=== PATIENT | male | born 1960 | race Caucasian/White ===

== ENCOUNTER 2018-06-25 10:28 | Inpatient (IN) | payer MEDICARE, OTHER ==
[~2018-06-25] VITALS: Ht 175.3 cm; Wt 82.1 kg
[2018-06-25] MEDS ORDERED: NS IV 1000 ML 1,000 ML IV SCH (11:31)
[2018-06-25] MEDS ORDERED: ALPRAZolam 0.25 MG (XANAX) TAB PO PRN (11:45)
[2018-06-25] MEDS ORDERED: ONDANSETRON 4 MG/2 ML (SDV) Z0FRAN IVP PRN (11:45)
[2018-06-25] MEDS ORDERED: DOCUSATE SODIUM 100 MG (COLACE) CAP PO PRN (11:45)
[2018-06-25] MEDS ORDERED: ACETAMINOPHEN 500 MG TAB (TYLENOL) PO PRN (11:45)
[2018-06-25] MEDS ORDERED: HYDROcodone/APAP 5 MG/325 MG (LORTAB) TAB PO PRN (11:45)
[2018-06-25] MEDS ORDERED: CALCIUM CARBONATE 500 MG (TUMS) TAB.CHEW PO PRN (11:45)
[2018-06-25] MEDS ORDERED: fentaNYL INJECTION 100 MCG/2 ML AMP IVP PRN (11:45)
[2018-06-25] MEDS ORDERED: NITR0.4T42 SL (14:50)
[2018-06-25] MEDS ORDERED: ATOR80TA76 PO (14:50)
[2018-06-25] MEDS ORDERED: LISI2.5T PO (14:50)
[2018-06-25] MEDS ORDERED: CARV25TA PO (14:50)
[2018-06-25] MEDS ORDERED: HYDR-3820 PO (14:50)
[2018-06-25] MEDS ORDERED: FURO80TA3 PO (14:50)
[2018-06-25] MEDS ORDERED: MEROPENEM 500 MG in NS (IVPB) 100 ML IV SCH (15:00)
[2018-06-25] MEDS ORDERED: ENOXAPARIN 40 MG/0.4 ML (LOVENOX) SYR SC SCH (15:00)
[2018-06-25 15:01] VITALS: BP 137/68
[2018-06-25] MEDS ORDERED: LISI10TA2 PO (15:07)
[2018-06-25] MEDS ORDERED: INSU100I29 SQ (15:07)
[2018-06-25 15:45] VITALS: BP 159/74
[2018-06-25] MEDS ORDERED: VANCOMYCIN 2000 MG/NS 500 ML IVPB IV NR ×2 (15:45)
--- NOTE | 2018-06-25 15:47 | History & Physical-Hospitalist ---
LILLYAILYN KENNEYDAVID MED STUDENT 06/25/18 1547: History of Present Illness HPI/Chief Complaint CC: Left foot wound, painful, swollen HPI: Patient is a 57 yo male with history of insulin dependent type 2 diabetes (most recent A1c 9 per PCP) and bilateral forefoot amputation. Patient reports that he was "fine, able to walk and everything" until approximately 1 month ago, a wound developed on the left lateral ankle. He has since been bedridden, unable to ambulate even to the bathroom. This wound is painful but the patient also has neuropathy for which he takes norco regularly and the wound pain was hard to distinguish from this baseline pain. Patient admits to many associated symptoms, see ROS. He has been under the care of a assembly machine feeder in [place] for this wound but recently it has worsened. He was directly admitted to [facility] from the PCP Dr. Blossom Camilo in [place], [place] where it was discovered that leg swelling had increased to the level of the knee. Source: patient Exam Limitations: no limitations Date Seen 06/25/18 Time Seen by a Provider: 15:00 Attending Physician Elisha Mccormick DO PCP No,Local Physician Referring Physician Date of Admission Jun 25, 2018 at 14:08 Home Medications & Allergies Home Medications Reviewed patient Home Medication Reconciliation performed by pharmacy medication reconciliations headend technician and/or nursing. Patients Allergies have been reviewed. Allergies Allergies Coded Allergies Penicillins (Verified Allergy, Unknown, 06/25/18) Sulfa (Sulfonamide Antibiotics) (Verified Allergy, Unknown, 06/25/18) Past Moqwphl-Eriiji-Qkahkn Hx Past Med/Social Hx: Reviewed and Corrections made Patient Social History Employed/Student: retired Alcohol Use: Denies Use Recreational Drug Use: No Smoking Status: Current Everyday Smoker (currently 1/4 ppd "used to be more") Type Used: Cigarettes 2nd Hand Smoke Exposure: Yes Recent Foreign Travel: No Contact w/other who traveled: No Social History current everyday smoker, never drank, no recreational drugs, 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 " Past Medical History Surgeries: Amputation (bilateral forefoot), Coronary Stent (x2) stent in his leg as well Cardiac: Coronary Artery Disease (2 stents required), Hypertension Neurological: Neuropathy (due to diabetes) Musculoskeletal: Amputee (bilateral forefoot) chronic pain Endocrine: Diabetes, Insulin dep type II diabetes mellitus with peripheral angiopathy and gangrene, insulin required essential HTN chronic pain iron deficiency anemia Family History Reviewed Nursing Family Hx Cancer (dad pancreatic, sister unknown), Diabetes Review of Systems Constitutional: chills; No diaphoresis; dizziness, malaise, weakness, weight loss (unsure how much, due to loss of appetite) EENTM: no symptoms reported; No hearing loss, No ear pain, No blurred vision, No vision loss Respiratory: no symptoms reported; No cough, No dyspnea on exertion, No short of breath Cardiovascular: No chest pain; edema, Hx of Intervention (coronary stents x2) Gastrointestinal: diarrhea (since yesterday), loss of appetite, nausea Genitourinary: no symptoms reported Musculoskeletal: other (lower extremity pain, neuropathy) Skin: dryness (lower extremity dry, flaking skin) Psychiatric/Neurological: No Symptoms Reported Physical Exam Physical Exam Vital Signs Vital Signs - First Documented 06/25/18 15:01 Temp 99.9 Pulse 109 Resp 22 B/P (MAP) 137/68 (91) Pulse Ox 99 O2 Delivery Room Air Capillary Refill : Height, Weight, BMI Height: '" Weight: 181lbs. oz. 82.836300ty; BMI Method: General Appearance: No Apparent Distress, Chronically ill, Obese Eyes: Bilateral Eye Normal Inspection HEENT: Normal ENT Inspection Neck: Full Range of Motion, Normal Inspection, Non Tender, Supple Respiratory: Chest Non Tender, Lungs Clear, Normal Breath Sounds, No Accessory Muscle Use, No Respiratory Distress Cardiovascular: Regular Rate, Rhythm, No Gallop, No JVD, No Murmur Gastrointestinal: Normal Bowel Sounds, No Pulsatile Mass, Non Tender (to deep palpation), Soft Extremity: No Calf Tenderness, Inflammation, Pedal Edema, Swelling (left leg greater than right) Neurologic/Psychiatric: Alert, Oriented x3, Normal Mood/Affect Skin: Warm/Dry, Pallor Results Results/Procedures Labs Patient resulted labs reviewed. Assessment/Plan Admission Diagnosis Left foot infection Admission Status: Inpatient Order (span 2 midnights) Reason for Inpatient Admission: wound possibly requiring amputation Assessment and Plan 57 yo male with uncontrolled diabetes presented with infected foot wound, left lateral ankle. Assessment: type II diabetic, insulin dependent L lateral ankle wound, failed outpatient management Plan: begin IV vancomycin and zosyn consult Dr. Sepulveda obtain MRI Diagnosis/Problems Diagnosis/Problems (1) Wound of left foot Status: Acute Assessment & Plan: consider amputation (2) Cellulitis of left foot Status: Acute (3) Diabetes mellitus type 2, insulin dependent Status: Chronic (4) Hypertension Status: Chronic Qualifiers: Hypertension type: essential hypertension Qualified Codes: I10 - Essential (primary) hypertension (5) Neuropathy Status: Chronic (6) Amputee Status: Chronic Permanent Comment: bilateral forefoot amputee Last Edited By: Maya Parham on Jun 25, 2018 16:31 (7) Chronic pain Status: Chronic ELISHA MCCORMICK DO 06/26/18 1029: History of Present Illness HPI/Chief Complaint This is a 57yoAAM patient of Dr Camilo in [place], [place] who called me upon Dr Derick palacios when he was contracted for need of foot infection management. He had been placed on Levaquin, Doxycycline, and Rocephin by PCP and patient was not responding and wanted a second opinion. I accepted the patient and when he was admitted ho refused to have lab draws and xrays and IV and RN explained that he would need to accept medical treatment in order for us to help him. He eventually agreed for lab draw revealing hgb 6.7 but normal renal function. IV was not adequate for transfusion and no indication for urgent transfusion and repeat today was 7.2 and he has a h/o transfusions in the past. Dr Spain saw patient in consultation and derived h/o stents in 2017. MRI was obtained and added left knee MRI which revealed not only osteomyelitis of the left foot but left knee septic arthritis and considering I did not have Ortho coverage this weekend and I do not have ID it was assessed with all of his co-morbidities he would need higher level of care. He has been at [facility] before but wanted transfer to [facility] in [place] because his family lives in [place] and his primary care provider is in [place], [place]. Source: patient, RN/MD Exam Limitations: other (poor historian) Date Seen 06/25/18 Time Seen by a Provider: 08:30 Home Medications & Allergies Home Medications Reviewed Past Fsqdoht-Hxckoc-Lkoryb Hx Past Med/Social Hx: Reviewed Nursing Past Med/Soc Hx, Reviewed and Corrections made Patient Social History Marrital Status: single Alcohol Use: Denies Use Recreational Drug Use: No Smoking Status: Current Everyday Smoker (currently 1/4 ppd "used to be more") Past Medical History Surgeries: Amputation (bilateral forefoot), Coronary Stent (x2 2017) Cardiac: Coronary Artery Disease (2 stents required), Hypertension Neurological: Neuropathy (due to diabetes) Musculoskeletal: Amputee (bilateral forefoot) Endocrine: Diabetes, Insulin dep Family History Diabetes Review of Systems Constitutional: see HPI, malaise, weakness EENTM: no symptoms reported Respiratory: no symptoms reported Cardiovascular: no symptoms reported Gastrointestinal: no symptoms reported Genitourinary: no symptoms reported Musculoskeletal: joint pain, muscle stiffness Skin: see HPI, change in color Psychiatric/Neurological: No Symptoms Reported All Other Systems Reviewed Negative Unless Noted: Yes Physical Exam Physical Exam General Appearance: No Apparent Distress, WD/WN, Chronically ill Eyes: Bilateral Eye Normal Inspection, Bilateral Eye PERRL HEENT: PERRL/EOMI, Normal ENT Inspection, Pharynx Normal Neck: Full Range of Motion, Normal Inspection, Non Tender, Supple, Carotid Bruit Respiratory: Chest Non Tender, Lungs Clear, Normal Breath Sounds, No Accessory Muscle Use, No Respiratory Distress Cardiovascular: Regular Rate, Rhythm, No Edema, No Gallop, No JVD, No Murmur, Normal Peripheral Pulses Gastrointestinal: Normal Bowel Sounds, No Organomegaly, No Pulsatile Mass, Non Tender, Soft Back: Normal Inspection, No CVA Tenderness, No Vertebral Tenderness Extremity: Normal Capillary Refill, Normal Inspection, Normal Range of Motion, Non Tender, No Calf Tenderness, Inflammation, Pedal Edema, Swelling (left leg greater than right), Other (left knee effusion noted) Neurologic/Psychiatric: Alert, Oriented x3, No Motor/Sensory Deficits, Normal Mood/Affect Skin: Normal Color, Warm/Dry Lymphatic: No Adenopathy Assessment/Plan Admission Diagnosis Left foot cellulitis Left acute knee septic arthritis DM PVD CAD DM OOC Severe anemia Leukocytosis Plan: Transfer to [place] Admission Status: Inpatient Order (span 2 midnights) Reason for Inpatient Admission: Septic knee needs I&D and IV abx Diagnosis/Problems Diagnosis/Problems (1) Septic arthritis of knee, left Status: Acute Qualifiers: Septic arthritis organism: due to unspecified organism Qualified Codes: M00.9 - Pyogenic arthritis, unspecified (2) Osteomyelitis of ankle or foot, left, acute Status: Acute (3) Amputee Status: Chronic Permanent Comment: bilateral forefoot amputee Last Edited By: Maya Parham on Jun 25, 2018 16:31 (4) Neuropathy Status: Chronic (5) Hypertension Status: Chronic Qualifiers: Hypertension type: essential hypertension Qualified Codes: I10 - Essential (primary) hypertension (6) Chronic pain Status: Chronic (7) Diabetes mellitus type 2, insulin dependent Status: Chronic (8) Cellulitis of left foot Status: Acute (9) Wound of left foot Status: Acute (10) Leukocytosis Status: Acute Qualifiers: Leukocytosis type: leukemoid reaction Qualified Codes: D72.823 - Leukemoid reaction (11) Anemia Status: Acute Qualifiers: Anemia type: unspecified type Qualified Codes: D64.9 - Anemia, unspecified (12) PVD (peripheral vascular disease) Status: Chronic (13) CAD (coronary artery disease) Status: Chronic Qualifiers: Coronary Disease-Associated Artery/Lesion type: [place] artery [place] vs. transplanted heart: [place] heart Associated angina: without angina Qualified Codes: I25.10 - Atherosclerotic heart disease of [place] coronary artery without angina pectoris (14) Smoker Status: Chronic MAYA PARHAM STUDENT Jun 25, 2018 15:47 ELISHA MCCORMICK DO Jun 26, 2018 10:29
[2018-06-25] MEDS ORDERED: ASPI-983 PO (15:50)
[2018-06-25] MEDS ORDERED: NITROGLYCERIN 0.4 MG SL TABS BTL 25'S SL PRN (16:00)
[2018-06-25] MEDS ORDERED: HYDROcodone/APAP 10 MG/325 MG (LORTAB) TAB PO PRN (16:15)
--- NOTE | 2018-06-25 16:24 | Consultation-Cardiology ---
HPI-Cardiology Cardiology Consultation: Date of Consultation 06/25/18 Time Seen by a Provider: 16:15 Date of Admission 06-25-18 Attending Physician Elisha Mccormick DO Admitting Physician Zainab,Local Physician Consulting Physician Jackie Spain MD HPI: Chief Complaint: Non-healing wound Mr. Miller is a 57 year old male direct admitted to [facility] from a PCP clinic in [place] d/t non-healing ulcer of the left foot. His family is at the bedside. He and his family report he has had a partial foot amputation of his left foot approx 15 years ago. He has been following with podiatry services in [place], [place]. He developed an ulcer on his left foot which was healed almost to "pin point" size. 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 He has had quite a bit of pain and swelling of the extremity up to his knee. He reports fever, chills, n/v/d which has been present for days. No c/o CP, palpitations, syncope, near syncope or dyspnea. He is a tobacco smoke of aprox 3/4 PPD. He does have DM 2 and is on insulin and Metformin. He reports last year he had cardiac stents placed in [place], [place]. 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 He states he does take ASA every day. He report difficulty with mobility d/t the pain in his left leg. Review of Systems-Cardiology Review of Systems Constitutional: chills, fever Eyes: No vision change Ears/Nose/Throat: No recent hearing loss Respiratory: As described under HPI Cardiovascular: As described under HPI Gastrointestinal: As described under HPI Genitourinary: No dysuria Musculoskeletal: As describe under HPI Skin: As described under HPI Psychiatric/Neurological: No seizure, No focal weakness, No syncope Hematologic: No bleeding abnormalities DDP-Vaksbq-Wucmtd Hx Patient Social History Employed/Student: retired Alcohol Use: Denies Use Recreational Drug Use: No Smoking Status: Current Everyday Smoker (currently 1/4 ppd "used to be more") Type Used: Cigarettes 2nd Hand Smoke Exposure: Yes Recent Foreign Travel: No Recent Infectious Disease Expo: No Past Medical History PMH As described under Assessment. Allergies and Home Medications Allergies Coded Allergies: Penicillins (Verified Allergy, Unknown, 06/25/18) Sulfa (Sulfonamide Antibiotics) (Verified Allergy, Unknown, 06/25/18) Home Medications Aspirin 81 Mg Tablet.dr, 81 MG PO DAILY, (Reported) Atorvastatin Calcium 80 Mg Tablet, 80 MG PO HS, (Reported) Carvedilol 25 Mg Tablet, 25 MG PO DAILY, (Reported) Furosemide 80 Mg Tablet, 80 MG PO DAILY, (Reported) Hydrocodone/Acetaminophen 1 Each Tablet, 1 TAB PO Q6H PRN for PAIN-MODERATE, ( Reported) Insulin Detemir 100 Unit/1 Ml Insuln.pen, 55 UNIT SQ BID, (Reported) LAST FILLED 10-02-17 Lisinopril 10 Mg Tablet, 10 MG PO BID, (Reported) LAST FILLED #60 04-14-18 Nitroglycerin 0.4 Mg Tab.subl, 0.4 MG SL UD PRN for CHEST PAIN, (Reported) Patient Home Medication List Home Medication List Reviewed: Yes Physical Exam-Cardiology Physical Exam Vital Signs/I&O 06/26/18 06/26/18 06/26/18 06/26/18 00:20 01:00 04:48 06:32 Temp 99.3 99.0 Pulse 104 102 97 Resp 19 18 B/P (MAP) 130/60 (83) 128/63 (84) Pulse Ox 98 96 96 O2 Delivery Room Air Room Air Room Air 06/26/18 07:00 Pulse 105 06/26/18 00:00 Intake Total 820 ml Output Total 0 ml Balance 820 ml Capillary Refill : Constitutional: AAO x 3, well-developed, well-nourished HEENT: PERRL, hearing is well preserved; No xanthelasmas are seen Neck: No carotid bruit; carotid pulses are 2 + bilaterally Respiratory: No accessory muscle use, No respiratory distress; lungs clear to auscultation Cardiovascular: regular rate-rhythm; No JVD; S1 and S2 Gastrointestinal: No tender; soft, round, audible bowel sounds Rectal: deferred Extremities: other (mod swelling of LLE from ankle to knee) Neurologic/Psychiatric: grossly intact Skin: other (dressing to LLE D&I (not removed); partial amputation of right foot) Data Review Labs Laboratory Tests 06/25/18 16:14: Glucometer 333H 06/25/18 17:30: White Blood Count 17.8H, Red Blood Count 2.73L, Hemoglobin 6.7*L, Hematocrit 21L , Mean Corpuscular Volume 76L, Mean Corpuscular Hemoglobin 25, Mean Corpuscular Hemoglobin Concent 32, Red Cell Distribution Width 15.9H, Platelet Count 545H, Mean Platelet Volume 8.7, Neutrophils (%) (Auto) 83H, Lymphocytes (%) (Auto) 8L , Monocytes (%) (Auto) 8, Eosinophils (%) (Auto) 0, Basophils (%) (Auto) 0, Neutrophils # (Auto) 14.9H, Lymphocytes # (Auto) 1.5, Monocytes # (Auto) 1.4H, Eosinophils # (Auto) 0.0, Basophils # (Auto) 0.0, Neutrophils % (Manual) 86, Lymphocytes % (Manual) 12, Monocytes % (Manual) 2, Eosinophils % (Manual) 0, Basophils % (Manual) 0, Band Neutrophils 0, Blood Morphology Comment NORMAL, Erythrocyte Sedimentation Rate > 140H, Sodium Level 128L, Potassium Level 3.2L, Chloride Level 93L, Carbon Dioxide Level 25, Anion Gap 10, Blood Urea Nitrogen 11, Creatinine 0.76, Estimat Glomerular Filtration Rate > 60, BUN/Creatinine Ratio 14, Glucose Level 311H, Lactic Acid Level 1.94, Calcium Level 7.6L, Corrected Calcium 9.4, Total Bilirubin 0.2, Aspartate Amino Transf (AST/SGOT) 6 , Alanine Aminotransferase (ALT/SGPT) 8, Alkaline Phosphatase 131, Total Protein 6.2L, Albumin 1.8L 06/25/18 21:32: Glucometer 378H 06/26/18 00:37: Urine Color BROWNH, Urine Clarity VERY CLOUDYH, Urine pH 6, Urine Specific [place] 1.020, Urine Protein 4+, Urine Glucose (UA) 2+H, Urine Ketones NEGATIVE , Urine Nitrite NEGATIVE, Urine Bilirubin 1+H, Urine Urobilinogen 1, Urine Leukocyte Esterase 1+H, Urine RBC (Auto) 2+H, Urine RBC 2-5H, Urine WBC RARE, Urine Squamous Epithelial Cells 10-25H, Urine Crystals NONE, Urine Bacteria NEGATIVE, Urine Casts PRESENT, Urine Hyaline Casts 5-10H, Urine Mucus SMALLH, Urine Culture Indicated NO 06/26/18 05:41: Glucometer 59*L 06/26/18 05:45: White Blood Count 20.6H, Red Blood Count 2.98L, Hemoglobin 7.2L, Hematocrit 23L , Mean Corpuscular Volume 76L, Mean Corpuscular Hemoglobin 24L, Mean Corpuscular Hemoglobin Concent 32, Red Cell Distribution Width 16.2H, Platelet Count 773H, Mean Platelet Volume 8.7, Neutrophils (%) (Auto) 88H, Lymphocytes (% ) (Auto) 6L, Monocytes (%) (Auto) 7, Eosinophils (%) (Auto) 0, Basophils (%) ( Auto) 0, Neutrophils # (Auto) 18.0H, Lymphocytes # (Auto) 1.2, Monocytes # (Auto ) 1.3H, Eosinophils # (Auto) 0.0, Basophils # (Auto) 0.0, Sodium Level 130L, Potassium Level 2.9L, Chloride Level 95L, Carbon Dioxide Level 25, Anion Gap 10 , Blood Urea Nitrogen 12, Creatinine 0.75, Estimat Glomerular Filtration Rate > 60, BUN/Creatinine Ratio 16, Glucose Level 48*L, Calcium Level 8.0L, Corrected Calcium 9.7, Total Bilirubin 0.2, Aspartate Amino Transf (AST/SGOT) 16, Alanine Aminotransferase (ALT/SGPT) 6, Alkaline Phosphatase 159H, Total Protein 6.8, Albumin 1.9L 06/26/18 06:04: Glucometer 64L 06/26/18 06:51: Glucometer 66L 06/26/18 07:32: Glucometer 47*L 06/26/18 07:48: Glucometer 139H 06/26/18 08:37: Glucometer 91 Radiology NAME: TOMASZ MILLER [facility] REC#: [id number] PT STATUS: ADM IN : 1960 PHYSICIAN: ELISHA MCCORMICK DO ADMIT DATE: 06/25/18/ Draft Date of Exam:06/25/18 US VENOUS LOWER EXT FREDDY PROCEDURE: US Venous Lower Ext Freddy. TECHNIQUE: Multiple real-time grayscale images were obtained over the lower extremities in various projections, bilaterally. Additional duplex Doppler and color Doppler images were also obtained. INDICATION: Leg swelling FINDINGS: The veins in the lower extremities have normal color filling and compressibility. There is normal spontaneous and augmented flow. IMPRESSION: Negative venous Doppler of the lower extremities. Dictated on workstation # [id number] Dict: 06/25/18 1639 Trans: 06/25/18 1643 [facility] [id number] Interpreted by: HEAVEN CHIN MD Electronically signed by: A/P-Cardiology Assessment/Admission Diagnosis Non-healing ulcer to LLE - medical services managing H/O CAD - reports stents placed in 2017 in [place], [place] - details unknown HTN HLD - statin tx DM 2 Tobaccoism - cessation advised H/O partial right and left foot amputations approx 15 yrs ago per pt Discussion and Recomendations Continue ASA 81 mg d/t reported h/o CAD Continue BB tx Echocardiogram to eval valvular status and LVEF Request records from [facility] in [place], [place] Management of wound as per medical/surgical services Monitor lab Further recs will be based on his hospital course We would like to thank medical services for this consult This consult is being scribed by Sanju Massey APRN on behalf of Dr. Spain after discussion regarding plan of care SILVINO MASSEY Jun 25, 2018 16:24
--- NOTE | 2018-06-25 16:43 | Diagnostic Imaging Report ---
PROCEDURE: US Venous Lower Ext Sameer. TECHNIQUE: Multiple real-time grayscale images were obtained over the lower extremities in various projections, bilaterally. Additional duplex Doppler and color Doppler images were also obtained. INDICATION: Leg swelling FINDINGS: The veins in the lower extremities have normal color filling and compressibility. There is normal spontaneous and augmented flow. IMPRESSION: Negative venous Doppler of the lower extremities. Dictated by: Dictated on workstation # [id number]
[2018-06-25 17:01] VITALS: BP 159/74
[2018-06-25 17:39] LABS: BASOPHILS % (AUTO) 0 % (0-10); EOSINOPHILS % (AUTO) 0 % (0-10); HEMATOCRIT 21 % (40-54); LYMPHOCYTES # (AUTO) 1.5 X 10^3 (1.0-4.0); LYMPHOCYTES % (AUTO) 8 % (12-44); MEAN CORPUSCULAR HEMOGLOBIN 25 PG (25-34); MEAN CORPUSCULAR HGB CONC 32 G/DL (32-36); MEAN CORPUSCULAR VOLUME 76 FL (80-99); MEAN PLATELET VOLUME 8.7 FL (7.4-10.4); MONOCYTES # (AUTO) 1.4 X 10^3 (0.0-1.0); MONOCYTES % (AUTO) 8 % (0-12); NEUTROPHILS # (AUTO) 14.9 X 10^3 (1.8-7.8); NEUTROPHILS % (AUTO) 83 % (42-75); PLATELET COUNT 545 10^3/uL (130-400); RED BLOOD COUNT 2.73 10^6/uL (4.35-5.85); RED CELL DISTRIBUTION WIDTH 15.9 % (10.0-14.5); WHITE BLOOD COUNT 17.8 10^3/uL (4.3-11.0)
[2018-06-25 17:47] LABS: HEMOGLOBIN 6.7 G/DL (13.3-17.7)
[2018-06-25 17:58] LABS: ALANINE AMINOTRANSFERASE 8 U/L (0-55); ALBUMIN 1.8 GM/DL (3.2-4.5); ALKALINE PHOSPHATASE 131 U/L (40-136); BILIRUBIN,TOTAL 0.2 MG/DL (0.1-1.0); BUN/CREATININE RATIO 14; CALCIUM 7.6 MG/DL (8.5-10.1); CARBON DIOXIDE 25 MMOL/L (21-32); CHLORIDE 93 MMOL/L (98-107); CREATININE SERUM 0.76 MG/DL (0.60-1.30); GFR ESTIMATED > 60; GLUCOSE 311 MG/DL (70-105); POTASSIUM 3.2 MMOL/L (3.6-5.0); SODIUM 128 MMOL/L (135-145); TOTAL PROTEIN 6.2 GM/DL (6.4-8.2)
[2018-06-25 18:03] LABS: ERYTHROCYTE SEDIMENTATION RATE > 140 MM/HR (0-30)
[2018-06-25 18:08] LABS: BAND NEUTROPHILS 0 %; BASOPHILS % (MANUAL) 0 %; EOSINOPHILS % (MANUAL) 0 %; LYMPHOCYTES % (MANUAL) 12 %; MONOCYTES % (MANUAL) 2 %; NEUTROPHILS % (MANUAL) 86 %
[2018-06-25 18:09] LABS: RBC MORPH NORMAL
--- NOTE | 2018-06-25 18:26 | Diagnostic Imaging Report ---
Clinical indication: Patient with fever. Exam: Portable chest x-ray upright view. Comparisons: None. Findings: There is mild elevation of the right hemidiaphragm. Lungs/pleura: Lungs are clear. There is no pneumothorax. There is no pleural effusion. Mediastinum: Unremarkable. Pulmonary vasculature: Unremarkable. Heart: Unremarkable. Bones/extrathoracic soft tissue: There are hypertrophic spurs involving the thoracic spine. Impression: There is no radiographic evidence of acute cardiopulmonary process. Dictated by: Dictated on workstation # [id number]
[2018-06-25] MEDS ORDERED: RT-ALBUTEROL SULF 2.5 MG/3 ML PRE-MIX VIAL INH PRN (18:30)
[2018-06-25] MEDS ORDERED: amLODIPine 5 MG (NORVASC) TAB PO NR (18:45)
[2018-06-25] MEDS ORDERED: KCL 20 MEQ TAB (K-DUR) PO NR (18:45)
--- NOTE | 2018-06-25 19:06 | Diagnostic Imaging Report ---
Clinical indication: Patient states infectious of the left foot. Exams: 1: X-ray of the left foot, 2 views. 2: X-ray of the left ankle, 2 views. Comparison: None. Findings: X-ray of the left foot and left ankle show partial amputation of the left foot at the level of the proximal metatarsals. There is bony disruption, erosions, and sclerosis involving the plantar aspect of the midfoot and residual metatarsal bones. There also appears to be bony fusion in the region of the midfoot and residual metatarsal bones. There are erosions involving the cuboid bone. There is subcutaneous air seen laterally adjacent to the ankle and posterior to the ankle. There are hypertrophic spurs involving the calcaneus at the plantar and Achilles attachment, tibial talar region, and calcaneal cuboid region. There is soft tissue swelling about the foot and ankle. Impression: There is partial amputation of the left foot with multiple bone erosive changes involving the residual midfoot bony structures concerning for osteomyelitis. There is associated soft tissue swelling and concern for gas within the soft tissue. Dictated by: Dictated on workstation # [id number]
--- NOTE | 2018-06-25 19:14 | Diagnostic Imaging Report ---
PROCEDURE: MRI left joint lower extremity without contrast. TECHNIQUE: Multiplanar, multisequence non contrast-enhanced MRI of the left lower extremity was accomplished. INDICATION: Diabetic infection. FINDINGS: There is a substantial marrow edema involving the proximal tibia anterior greater than posterior and medial greater than lateral. There are areas of cortical breakthrough and cortical destruction anteromedially. The pattern is most consistent with osteomyelitis. The distal femur and proximal fibula as well as patella reveal no acute pathology. There is a very large knee joint effusion. Given the findings in the bone and the suspicion for cortical breakthrough, septic arthritis could not be excluded. The fluid could be sampled percutaneously. There is partial longitudinal split tearing of the infrapatellar tendon along its medial aspect. No full-thickness transection. The quadriceps is elevated by the large effusion but appears otherwise unremarkable. There is diffuse subcutaneous edema throughout the knee circumferentially. There is extracapsular fluid superficial to the distal medial collateral ligament near the area of the greatest abnormality of the proximal tibia. There is likely some subperiosteal purulence. No other extracapsular fluid collection. There is medial greater than lateral compartmental osteoarthritis and mild patellofemoral arthritis. There are rounded areas of signal void artifact anteromedially about the knee, which may reflect metallic artifacts from previous surgery but could reflect bubbles of gas. Plain film correlation is recommended. IMPRESSION: Findings of osteomyelitis in the proximal tibia with cortical breakthrough anteromedially at its metaphysis with likely adjacent subperiosteal purulence. Large joint effusion suspect for septic joint. This could be sampled percutaneously. Remaining osseous structures reveal degenerative changes but no other acute bony findings. Diffuse cellulitis presumed. Dictated by: Dictated on workstation # [id number]
[2018-06-25] MEDS ORDERED: GADOBUTROL 10 MMOL/10 ML (GADAVIST) VIAL IV ONE (19:15)
[2018-06-25] MEDS: inSUlin ASPART (NovoLOG) 1 UNIT/0.01 ML (CHARGE PER UNIT) SC SCH ×2 (19:37→21:37)
[2018-06-25 19:40] VITALS: BP 177/83
--- NOTE | 2018-06-25 19:45 | Diagnostic Imaging Report ---
PROCEDURE: MRI left lower extremity with and without contrast. TECHNIQUE: Multiplanar, multisequence pre and post contrast-enhanced MRI of the left lower extremity was accomplished. INDICATION: Diabetic patient, history of osteomyelitis and amputation, now with swelling and pain. COMPARISON: While I have no previous for direct comparison, the study interpreted in correlation with radiograph 06/25/2018. FINDINGS: There is soft tissue and osseous forefoot amputation with marrow edema and irregularities of the cuboid and cuneiforms as well as marrow edema and cortical irregularities of the plantar calcaneus at its middle to anterior one third. The distal tibia, fibula, and talus appear nonacute. There are some likely degenerative changes about the navicular. There is extensive cellulitis about the ankle and residual foot circumferentially but most profoundly at its plantar aspect where there are multiple rim-enhancing pockets of fluid extending from the skin surface posteriorly oriented obliquely and coursing posterior to the lateral malleolus and the extending cephalad above the [id number] of this exam posterior to the peroneal tendons. This is presumed abscess measuring at least 15 cm. Additional fluid collections are present. The next largest plantar foot is 2.5 cm in long axis just inferior and medial to the cuboid. There is a mild amount of marrow edema in the distal head of the fibula adjacent to the largest abscess. Its involvement by osteomyelitis as well could not be excluded. There is no tibiotalar joint effusion. IMPRESSION: Extensive cellulitis and soft tissue abscesses about the plantar foot and ankle with likely extensive osteomyelitis involving the residual tarsal bones with questionable involvement of the distal fibular head. Rim-enhancing elongated fluid collection tracking posterior to the peroneals extends above the [id number] of this exam. Dictated by: Dictated on workstation # [id number]
[2018-06-25] MEDS: NS W/KCL 20 MEQ/L 1,000 ML IV SCH (19:50)
[2018-06-25] MEDS: lisINopril 10 MG (PRINIVIL) TABLET PO SCH (19:54)
[2018-06-25] MEDS: inSUlin DETERMIR 1 UNIT/0.01 ML (LEVEMIR) CHARGE PER UNIT SQ SCH (21:37)
[2018-06-26 00:20] VITALS: BP 130/60
[2018-06-26] MEDS: MEROPENEM 500 MG in NS (IVPB) 100 ML IV SCH ×2 (01:46→09:10)
[2018-06-26 02:27] LABS: CLARITY,URINE VERY CLOUDY; COLOR,URINE BROWN; GLUCOSE, URINE (UA) 2+ (NEGATIVE); KETONES,URINE NEGATIVE (NEGATIVE); LEUKOCYTE ESTERASE ,URINE 1+ (NEGATIVE); NITRITE,URINE NEGATIVE (NEGATIVE); PH,URINE 6 (5-9); PROTEIN,URINE 4+ (NEGATIVE); UROBILINOGEN,URINE 1 MG/DL (NORMAL)
[2018-06-26 02:38] LABS: BACTERIA,URINE NEGATIVE /HPF; BILIRUBIN,URINE 1+ (NEGATIVE); WBC,URINE RARE /HPF
[2018-06-26 04:48] VITALS: BP 128/63
[2018-06-26] MEDS: inSUlin ASPART (NovoLOG) 1 UNIT/0.01 ML (CHARGE PER UNIT) SC SCH (05:53)
[2018-06-26 06:14] LABS: BASOPHILS % (AUTO) 0 % (0-10); EOSINOPHILS % (AUTO) 0 % (0-10); HEMATOCRIT 23 % (40-54); HEMOGLOBIN 7.2 G/DL (13.3-17.7); LYMPHOCYTES # (AUTO) 1.2 X 10^3 (1.0-4.0); LYMPHOCYTES % (AUTO) 6 % (12-44); MEAN CORPUSCULAR HEMOGLOBIN 24 PG (25-34); MEAN CORPUSCULAR HGB CONC 32 G/DL (32-36); MEAN CORPUSCULAR VOLUME 76 FL (80-99); MEAN PLATELET VOLUME 8.7 FL (7.4-10.4); MONOCYTES # (AUTO) 1.3 X 10^3 (0.0-1.0); MONOCYTES % (AUTO) 7 % (0-12); NEUTROPHILS % (AUTO) 88 % (42-75); PLATELET COUNT 773 10^3/uL (130-400); RED BLOOD COUNT 2.98 10^6/uL (4.35-5.85); RED CELL DISTRIBUTION WIDTH 16.2 % (10.0-14.5); WHITE BLOOD COUNT 20.6 10^3/uL (4.3-11.0)
[2018-06-26 06:30] LABS: ALANINE AMINOTRANSFERASE 6 U/L (0-55); ALBUMIN 1.9 GM/DL (3.2-4.5); ALKALINE PHOSPHATASE 159 U/L (40-136); BILIRUBIN,TOTAL 0.2 MG/DL (0.1-1.0); BUN/CREATININE RATIO 16; CARBON DIOXIDE 25 MMOL/L (21-32); CHLORIDE 95 MMOL/L (98-107); CREATININE SERUM 0.75 MG/DL (0.60-1.30); GFR ESTIMATED > 60; POTASSIUM 2.9 MMOL/L (3.6-5.0); SODIUM 130 MMOL/L (135-145); TOTAL PROTEIN 6.8 GM/DL (6.4-8.2)
[2018-06-26 06:34] LABS: GLUCOSE 48 MG/DL (70-105)
[2018-06-26] MEDS ORDERED: DEXTROSE 50% 50 ML (IMS) SYR ONE (07:30)
[2018-06-26] MEDS: NS W/KCL 20 MEQ/L 1,000 ML IV SCH (07:34)
[2018-06-26] MEDS ORDERED: DEXTROSE 50% 50 ML (IMS) SYR IV NR (07:45)
[2018-06-26 08:00] VITALS: BP 129/60
[2018-06-26] MEDS ORDERED: VANCOMYCIN 1,250 MG/NS 250 ML IVPB IV SCH ×2 (08:00)
--- NOTE | 2018-06-26 08:41 | Progress Note-Hospitalist ---
ISACC PARHAM MED STUDENT 06/26/18 0841: Subjective HPI/CC On Admission Date Seen by Provider: Jun 26, 2018 Time Seen by Provider: 08:25 CC: Left foot wound, painful, swollen HPI: Patient is a 57 yo male with history of insulin dependent type 2 diabetes (most recent A1c 9 per PCP) and bilateral forefoot amputation. Patient reports that he was "fine, able to walk and everything" until approximately 1 month ago, a wound developed on the left lateral ankle. He has since been bedridden, unable to ambulate even to the bathroom. This wound is painful but the patient also has neuropathy for which he takes norco regularly and the wound pain was hard to distinguish from this baseline pain. He reports that his left knee is also in a lot of pain and winces with light palpation. He has been under the care of a legal support analyst in [place] for this wound but recently it has worsened. He was directly admitted to [facility] from the PCP Dr. Blossom Camilo in [place], [place] where it was discovered that leg swelling had increased to the level of the knee. Subjective/Events-last exam Patient is feeling "much better" since recieving IV fluids and since blood sugar has been resolved (it dropped to 47 earlier this morning, and now he is being checked every 30 minutes) urinating frequently and without difficulty no BM yet, and states he doesn't like the idea of using a bedpan for this states that he is in pain at the left knee yesterday MRI showed osteomyelitis at proximal tibia and possible septic joint left knee Focused Exam Lactate Level 06/25/18 17:30: Lactic Acid Level 1.94 Objective Exam Vital Signs Vital Signs Date Time Temp Pulse Resp B/P (MAP) Pulse Ox O2 Delivery O2 Flow Rate FiO2 06/26/18 07:00 105 06/26/18 06:32 96 Room Air 06/26/18 04:48 99.0 18 128/63 (84) Capillary Refill : General Appearance: No Apparent Distress, WD/WN, Obese HEENT: Normal ENT Inspection, Pharynx Normal, Moist Mucous Membranes Neck: Normal Inspection, Non Tender, Supple Respiratory: Chest Non Tender, Lungs Clear, Normal Breath Sounds, No Accessory Muscle Use, No Respiratory Distress Cardiovascular: Regular Rate, Rhythm, No Gallop, No Murmur Gastrointestinal: Normal Bowel Sounds, No Organomegaly, No Pulsatile Mass, Non Tender, Soft Back: No CVA Tenderness, No Vertebral Tenderness Extremity: Inflammation, Pedal Edema, Swelling Neurologic/Psychiatric: Alert, Oriented x3, No Motor/Sensory Deficits, Normal Mood/Affect Skin: Normal Color, Warm/Dry Results/Procedures Lab Laboratory Tests 06/25/18 17:30 06/26/18 05:45 Patient resulted labs reviewed. Assessment/Plan Assessment and Plan Assess & Plan/Chief Complaint 57 yo male with uncontrolled diabetes presented with infected foot wound, left lateral ankle. Assessment: type II diabetic, insulin dependent L lateral ankle wound, failed outpatient management left proximal tibia osteomyelitis possible left knee septic joint Plan: DC to another facility for management of lower extremity Diagnosis/Problems Diagnosis/Problems (1) Wound of left foot Status: Acute Assessment & Plan: consider amputation (2) Cellulitis of left foot Status: Acute (3) Diabetes mellitus type 2, insulin dependent Status: Chronic (4) Hypertension Status: Chronic Qualifiers: Hypertension type: essential hypertension Qualified Codes: I10 - Essential (primary) hypertension (5) Neuropathy Status: Chronic (6) Amputee Status: Chronic Permanent Comment: bilateral forefoot amputee Last Edited By: Isacc Parham on Jun 25, 2018 16:31 (7) Chronic pain Status: Chronic Clinical Quality Measures DVT/VTE Risk/Contraindication: Risk Factor Score Per Nursin RFS Level Per Nursing on Admit: 4+=Very High DEL MCCORMICK DO 06/26/18 1036: Subjective Subjective/Events-last exam Spoke to Dr Santo in [place] and she accepts admit Diagnosis/Problems Diagnosis/Problems (1) Septic arthritis of knee, left Status: Acute Qualifiers: Septic arthritis organism: due to unspecified organism Qualified Codes: M00.9 - Pyogenic arthritis, unspecified (2) Osteomyelitis of ankle or foot, left, acute Status: Acute (3) Wound of left foot Status: Acute (4) Cellulitis of left foot Status: Acute (5) Diabetes mellitus type 2, insulin dependent Status: Chronic (6) Chronic pain Status: Chronic (7) Hypertension Status: Chronic Qualifiers: Hypertension type: essential hypertension Qualified Codes: I10 - Essential (primary) hypertension (8) Neuropathy Status: Chronic (9) Amputee Status: Chronic Permanent Comment: bilateral forefoot amputee Last Edited By: Isacc Parham on Jun 25, 2018 16:31 (10) PVD (peripheral vascular disease) Status: Chronic (11) Leukocytosis Status: Acute Qualifiers: Leukocytosis type: leukemoid reaction Qualified Codes: D72.823 - Leukemoid reaction (12) CAD (coronary artery disease) Status: Chronic Qualifiers: Coronary Disease-Associated Artery/Lesion type: [place] artery [place] vs. transplanted heart: [place] heart Associated angina: without angina Qualified Codes: I25.10 - Atherosclerotic heart disease of [place] coronary artery without angina pectoris (13) Anemia Status: Acute Qualifiers: Anemia type: unspecified type Qualified Codes: D64.9 - Anemia, unspecified ISACC PARHAM STUDENT Jun 26, 2018 08:41 DEL MCCORMICK DO Jun 26, 2018 10:36
[2018-06-26] MEDS ORDERED: CARVEDILOL 12.5 MG (COREG) TABLET PO SCH ×2 (09:00→21:00)
[2018-06-26] MEDS ORDERED: amLODIPine 5 MG (NORVASC) TAB PO SCH (09:00)
[2018-06-26] MEDS ORDERED: ASPIRIN E.C. 81 MG (ECOTRIN) TAB PO SCH (09:00)
--- NOTE | 2018-06-26 09:02 | Consultation-Cardiology ---
HPI-Cardiology Cardiology Consultation: Date of Consultation 06/26/18 Time Seen by a Provider: 08:45 Date of Admission Attending Physician Elisha Ortega DO Admitting Physician Zainab,Local Physician Consulting Physician DAVID CLOUD MD, MA, FACP, FACC, FSCAI, CCDS HPI: Chief Complaint: Reason for consultation: H/o CAD and foot amputations and current foot/leg osteomyelitis; cardiac comanagement Mr. Spears is a 57 year old male direct admitted Dr Ortega. He is resident of [place]. He is reported to have a non-healing ulcer of the left foot. He reports he has had a partial foot amputation of his left foot approx 15 years ago. He has been following with podiatry services in [place], [place]. He developed an ulcer on his left foot which was healed almost to "pin point" size. At the instruction of his diesel dragline operator they were sprinkling foot powder around the wound and it began worsen. He has had quite a bit of pain and swelling of the extremity up to his knee. He reports fever, chills, n/v/d which has been present for days. He report difficulty with mobility d/t the pain in his left leg. He denies CP, palpitations, syncope, near syncope or dyspnea. He has a longstanding h/o of smoking cigs and still smokes multiple packs a day. He reports DM 2 and is on insulin and Metformin. He reports he had cardiac stents placed in [place], [place] over a year ago (early 2016). He does not recall the housing quality standard inspector. He states he does take ASA every day. Review of Systems-Cardiology Review of Systems Constitutional: chills, fever, malaise, tiredness; No weight loss, No other Eyes: No vision change Ears/Nose/Throat: No ear discharge, No nasal drainage, No recent hearing loss Respiratory: As described under HPI Cardiovascular: As described under HPI Gastrointestinal: No diarrhea, No nausea Genitourinary: No dysuria, No hematuria Musculoskeletal: As describe under HPI Skin: As described under HPI Psychiatric/Neurological: No seizure, No focal weakness, No syncope Hematologic: No bleeding abnormalities [id number]-[id number] Hx Patient Social History Employed/Student: retired Alcohol Use: Denies Use Recreational Drug Use: No Smoking Status: Current Everyday Smoker (currently 1/4 ppd "used to be more") Type Used: Cigarettes 2nd Hand Smoke Exposure: Yes Recent Foreign Travel: No Recent Infectious Disease Expo: No Physical Abuse Screen: No Sexual Abuse: No Past Medical History PMH As described under Assessment. Family Medical History Family Medical History: He does not report fam h/o early CAD or SCD Does report fam h/o DM II Allergies and Home Medications Allergies Coded Allergies: Penicillins (Verified Allergy, Unknown, 06/25/18) Sulfa (Sulfonamide Antibiotics) (Verified Allergy, Unknown, 06/25/18) Home Medications Aspirin 81 Mg Tablet.dr, 81 MG PO DAILY, (Reported) Atorvastatin Calcium 80 Mg Tablet, 80 MG PO HS, (Reported) Carvedilol 25 Mg Tablet, 25 MG PO DAILY, (Reported) Furosemide 80 Mg Tablet, 80 MG PO DAILY, (Reported) Hydrocodone/Acetaminophen 1 Each Tablet, 1 TAB PO Q6H PRN for PAIN-MODERATE, ( Reported) Insulin Detemir 100 Unit/1 Ml Insuln.pen, 55 UNIT SQ BID, (Reported) LAST FILLED 10-02-17 Lisinopril 10 Mg Tablet, 10 MG PO BID, (Reported) LAST FILLED #60 04-14-18 Nitroglycerin 0.4 Mg Tab.subl, 0.4 MG SL UD PRN for CHEST PAIN, (Reported) Patient Home Medication List Home Medication List Reviewed: Yes Physical Exam-Cardiology Physical Exam Vital Signs/I&O 06/26/18 06/26/18 06/26/18 06/26/18 00:20 01:00 04:48 06:32 Temp 99.3 99.0 Pulse 104 102 97 Resp 19 18 B/P (MAP) 130/60 (83) 128/63 (84) Pulse Ox 98 96 96 O2 Delivery Room Air Room Air Room Air 06/26/18 07:00 Pulse 105 06/26/18 00:00 Intake Total 820 ml Output Total 0 ml Balance 820 ml Capillary Refill : Constitutional: AAO x 3, well-developed, well-nourished HEENT: PERRL, hearing is well preserved; No xanthelasmas are seen Neck: No carotid bruit; carotid pulses are 2 + bilaterally Respiratory: No accessory muscle use, No respiratory distress; lungs clear to auscultation Cardiovascular: regular rate-rhythm; No JVD; S1 and S2 Gastrointestinal: No tender; soft, round, audible bowel sounds Rectal: deferred Extremities: other (mod swelling of LLE from ankle to knee) Neurologic/Psychiatric: grossly intact Skin: other (L forefoot under dressing that was not removed; partial amputation of right foot) Data Review Labs Laboratory Tests 06/25/18 16:14: Glucometer 333H 06/25/18 17:30: White Blood Count 17.8H, Red Blood Count 2.73L, Hemoglobin 6.7*L, Hematocrit 21L , Mean Corpuscular Volume 76L, Mean Corpuscular Hemoglobin 25, Mean Corpuscular Hemoglobin Concent 32, Red Cell Distribution Width 15.9H, Platelet Count 545H, Mean Platelet Volume 8.7, Neutrophils (%) (Auto) 83H, Lymphocytes (%) (Auto) 8L , Monocytes (%) (Auto) 8, Eosinophils (%) (Auto) 0, Basophils (%) (Auto) 0, Neutrophils # (Auto) 14.9H, Lymphocytes # (Auto) 1.5, Monocytes # (Auto) 1.4H, Eosinophils # (Auto) 0.0, Basophils # (Auto) 0.0, Neutrophils % (Manual) 86, Lymphocytes % (Manual) 12, Monocytes % (Manual) 2, Eosinophils % (Manual) 0, Basophils % (Manual) 0, Band Neutrophils 0, Blood Morphology Comment NORMAL, Erythrocyte Sedimentation Rate > 140H, Sodium Level 128L, Potassium Level 3.2L, Chloride Level 93L, Carbon Dioxide Level 25, Anion Gap 10, Blood Urea Nitrogen 11, Creatinine 0.76, Estimat Glomerular Filtration Rate > 60, BUN/Creatinine Ratio 14, Glucose Level 311H, Lactic Acid Level 1.94, Calcium Level 7.6L, Corrected Calcium 9.4, Total Bilirubin 0.2, Aspartate Amino Transf (AST/SGOT) 6 , Alanine Aminotransferase (ALT/SGPT) 8, Alkaline Phosphatase 131, Total Protein 6.2L, Albumin 1.8L 06/25/18 21:32: Glucometer 378H 06/26/18 00:37: Urine Color BROWNH, Urine Clarity VERY CLOUDYH, Urine pH 6, Urine Specific [place] 1.020, Urine Protein 4+, Urine Glucose (UA) 2+H, Urine Ketones NEGATIVE , Urine Nitrite NEGATIVE, Urine Bilirubin 1+H, Urine Urobilinogen 1, Urine Leukocyte Esterase 1+H, Urine RBC (Auto) 2+H, Urine RBC 2-5H, Urine WBC RARE, Urine Squamous Epithelial Cells 10-25H, Urine Crystals NONE, Urine Bacteria NEGATIVE, Urine Casts PRESENT, Urine Hyaline Casts 5-10H, Urine Mucus SMALLH, Urine Culture Indicated NO 06/26/18 05:41: Glucometer 59*L 06/26/18 05:45: White Blood Count 20.6H, Red Blood Count 2.98L, Hemoglobin 7.2L, Hematocrit 23L , Mean Corpuscular Volume 76L, Mean Corpuscular Hemoglobin 24L, Mean Corpuscular Hemoglobin Concent 32, Red Cell Distribution Width 16.2H, Platelet Count 773H, Mean Platelet Volume 8.7, Neutrophils (%) (Auto) 88H, Lymphocytes (% ) (Auto) 6L, Monocytes (%) (Auto) 7, Eosinophils (%) (Auto) 0, Basophils (%) ( Auto) 0, Neutrophils # (Auto) 18.0H, Lymphocytes # (Auto) 1.2, Monocytes # (Auto ) 1.3H, Eosinophils # (Auto) 0.0, Basophils # (Auto) 0.0, Sodium Level 130L, Potassium Level 2.9L, Chloride Level 95L, Carbon Dioxide Level 25, Anion Gap 10 , Blood Urea Nitrogen 12, Creatinine 0.75, Estimat Glomerular Filtration Rate > 60, BUN/Creatinine Ratio 16, Glucose Level 48*L, Calcium Level 8.0L, Corrected Calcium 9.7, Total Bilirubin 0.2, Aspartate Amino Transf (AST/SGOT) 16, Alanine Aminotransferase (ALT/SGPT) 6, Alkaline Phosphatase 159H, Total Protein 6.8, Albumin 1.9L 06/26/18 06:04: Glucometer 64L 06/26/18 06:51: Glucometer 66L 06/26/18 07:32: Glucometer 47*L 06/26/18 07:48: Glucometer 139H Laboratory Tests 06/25/18 17:30 06/26/18 05:45 A/P-Cardiology Assessment/Admission Diagnosis CAD, by history. Reports cor stent placements in 2017 in [place] (details unknown) Extensive L foot cellulitis and osteomyelitis, being managed by Dr Ortega and the Ortho Svce Marked anemia of undetermined etiology, being managed by Dr Ortega Elec abnormalities HTN HLD - statin tx DM 2 Chronic tobacco use from which cessation has been advised H/O partial right and left foot amputations approx 15 yrs ago per pt Discussion and Recomendations * We recommend consideration of blood transfusion to restore HCT > 30 * Continue ASA 81 mg d/t reported h/o CAD * Continue BB tx * Echocardiogram to eval valvular status and LVEF * Request records from [facility] in [place], [place] * Replenish K and monitor labs * I spoke with him and answered CV-related questions Clinical Quality Measures DVT/VTE Risk/Contraindication: Risk Factor Score Per Nursin RFS Level Per Nursing on Admit: 4+=Very High DAVID CLOUD MD FACP FACC CCDS Jun 26, 2018 09:02
[2018-06-26] MEDS ORDERED: KCL 20 MEQ TAB (K-DUR) PO NR (09:15)
[2018-06-26] MEDS ORDERED: MERO500P IV (09:34)
[2018-06-26] MEDS ORDERED: AMLO5TAB7 PO (09:34)
[2018-06-26] MEDS ORDERED: VANC1PLA9 IV (09:34)
[2018-06-26] MEDS: lisINopril 10 MG (PRINIVIL) TABLET PO SCH (10:00)
[2018-06-26] MEDS: inSUlin DETERMIR 1 UNIT/0.01 ML (LEVEMIR) CHARGE PER UNIT SQ SCH (10:02)
--- NOTE | 2018-06-26 10:55 | Discharge Summary-Hospitalist ---
ISACC BRADFORD MED STUDENT 06/26/18 1055: Diagnosis/Chief Complaint Date of Admission Jun 25, 2018 at 14:08 Date of Discharge Discharge Date: Jun 26, 2018 Admission Diagnosis Left foot cellulitis Left acute knee septic arthritis DM PVD CAD DM OOC Severe anemia Leukocytosis Plan: Transfer to [facility] Discharge Diagnosis (1) Septic arthritis of knee, left Status: Acute (2) Osteomyelitis of ankle or foot, left, acute Status: Acute (3) Wound of left foot Status: Acute (4) Cellulitis of left foot Status: Acute (5) Diabetes mellitus type 2, insulin dependent Status: Chronic (6) Chronic pain Status: Chronic (7) Hypertension Status: Chronic (8) Neuropathy Status: Chronic (9) Amputee Status: Chronic (10) PVD (peripheral vascular disease) Status: Chronic (11) Leukocytosis Status: Acute (12) CAD (coronary artery disease) Status: Chronic (13) Anemia Status: Acute Discharge Summary Discharge Physical Exam Allergies: Coded Allergies: Penicillins (Verified Allergy, Unknown, 06/25/18) Sulfa (Sulfonamide Antibiotics) (Verified Allergy, Unknown, 06/25/18) Vitals & I&Os Vital Signs Date Time Temp Pulse Resp B/P (MAP) Pulse Ox O2 Delivery O2 Flow Rate FiO2 06/26/18 08:00 98.0 104 18 129/60 (83) 100 Room Air General Appearance: Chronically ill, Mild Distress HEENT: Normal ENT Inspection, Pharynx Normal, Moist Mucous Membranes Respiratory: Chest Non Tender, Lungs Clear, Normal Breath Sounds, No Accessory Muscle Use, No Respiratory Distress Cardiovascular: Regular Rate, Rhythm, No Gallop, No JVD, No Murmur Gastrointestinal: Normal Bowel Sounds, No Organomegaly, No Pulsatile Mass, Non Tender, Soft Extremity: Calf Tenderness, Inflammation, Pedal Edema, Swelling Skin: Normal Color, Warm/Dry Neurologic/Psychiatric: Alert, Oriented x3, No Motor/Sensory Deficits, Normal Mood/Affect Hospital Course This patient was sent to us from his PCP in [place], [place] for an infected foot wound. History is significant for uncontrolled, insulin dependent diabetes, bilateral partial foot amputation, CAD, HTN, anemia due to chronic blood loss. Exam revealed extensive swelling, pain, and erythema up to the level of the left knee. MRI was significant for osteomyelitis up to the level of the proximal tibia, possible air in tissue, possible septic knee joint on left side. Labs revealed electrolyte abnormalities suggestive of kidney injury, anemia. It was decided that his condition required a higher level of care than what we can provide at this facility and therefore he was discharged to [facility] in [place], [place]. Plan is to transport him via ambulance. Labs (last 24 hrs) Laboratory Tests 06/25/18 16:14: Glucometer 333H 06/25/18 17:30: White Blood Count 17.8H, Red Blood Count 2.73L, Hemoglobin 6.7*L, Hematocrit 21L , Mean Corpuscular Volume 76L, Mean Corpuscular Hemoglobin 25, Mean Corpuscular Hemoglobin Concent 32, Red Cell Distribution Width 15.9H, Platelet Count 545H, Mean Platelet Volume 8.7, Neutrophils (%) (Auto) 83H, Lymphocytes (%) (Auto) 8L , Monocytes (%) (Auto) 8, Eosinophils (%) (Auto) 0, Basophils (%) (Auto) 0, Neutrophils # (Auto) 14.9H, Lymphocytes # (Auto) 1.5, Monocytes # (Auto) 1.4H, Eosinophils # (Auto) 0.0, Basophils # (Auto) 0.0, Neutrophils % (Manual) 86, Lymphocytes % (Manual) 12, Monocytes % (Manual) 2, Eosinophils % (Manual) 0, Basophils % (Manual) 0, Band Neutrophils 0, Blood Morphology Comment NORMAL, Erythrocyte Sedimentation Rate > 140H, Sodium Level 128L, Potassium Level 3.2L, Chloride Level 93L, Carbon Dioxide Level 25, Anion Gap 10, Blood Urea Nitrogen 11, Creatinine 0.76, Estimat Glomerular Filtration Rate > 60, BUN/Creatinine Ratio 14, Glucose Level 311H, Lactic Acid Level 1.94, Calcium Level 7.6L, Corrected Calcium 9.4, Total Bilirubin 0.2, Aspartate Amino Transf (AST/SGOT) 6 , Alanine Aminotransferase (ALT/SGPT) 8, Alkaline Phosphatase 131, Total Protein 6.2L, Albumin 1.8L 06/25/18 21:32: Glucometer 378H 06/26/18 00:37: Urine Color BROWNH, Urine Clarity VERY CLOUDYH, Urine pH 6, Urine Specific [place] 1.020, Urine Protein 4+, Urine Glucose (UA) 2+H, Urine Ketones NEGATIVE , Urine Nitrite NEGATIVE, Urine Bilirubin 1+H, Urine Urobilinogen 1, Urine Leukocyte Esterase 1+H, Urine RBC (Auto) 2+H, Urine RBC 2-5H, Urine WBC RARE, Urine Squamous Epithelial Cells 10-25H, Urine Crystals NONE, Urine Bacteria NEGATIVE, Urine Casts PRESENT, Urine Hyaline Casts 5-10H, Urine Mucus SMALLH, Urine Culture Indicated NO 06/26/18 05:41: Glucometer 59*L 06/26/18 05:45: White Blood Count 20.6H, Red Blood Count 2.98L, Hemoglobin 7.2L, Hematocrit 23L , Mean Corpuscular Volume 76L, Mean Corpuscular Hemoglobin 24L, Mean Corpuscular Hemoglobin Concent 32, Red Cell Distribution Width 16.2H, Platelet Count 773H, Mean Platelet Volume 8.7, Neutrophils (%) (Auto) 88H, Lymphocytes (% ) (Auto) 6L, Monocytes (%) (Auto) 7, Eosinophils (%) (Auto) 0, Basophils (%) ( Auto) 0, Neutrophils # (Auto) 18.0H, Lymphocytes # (Auto) 1.2, Monocytes # (Auto ) 1.3H, Eosinophils # (Auto) 0.0, Basophils # (Auto) 0.0, Sodium Level 130L, Potassium Level 2.9L, Chloride Level 95L, Carbon Dioxide Level 25, Anion Gap 10 , Blood Urea Nitrogen 12, Creatinine 0.75, Estimat Glomerular Filtration Rate > 60, BUN/Creatinine Ratio 16, Glucose Level 48*L, Calcium Level 8.0L, Corrected Calcium 9.7, Total Bilirubin 0.2, Aspartate Amino Transf (AST/SGOT) 16, Alanine Aminotransferase (ALT/SGPT) 6, Alkaline Phosphatase 159H, Total Protein 6.8, Albumin 1.9L 06/26/18 06:04: Glucometer 64L 06/26/18 06:51: Glucometer 66L 06/26/18 07:32: Glucometer 47*L 06/26/18 07:48: Glucometer 139H 06/26/18 08:37: Glucometer 91 Patient resulted labs reviewed. Pending Labs Laboratory Tests 06/26/18 05:41: Glucometer 59 06/26/18 05:45: White Blood Count 20.6, Red Blood Count 2.98, Hemoglobin 7.2, Hematocrit 23, Mean Corpuscular Volume 76, Mean Corpuscular Hemoglobin 24, Mean Corpuscular Hemoglobin Concent 32, Red Cell Distribution Width 16.2, Platelet Count 773, Mean Platelet Volume 8.7, Neutrophils (%) (Auto) 88, Lymphocytes (%) (Auto) 6, Monocytes (%) (Auto) 7, Eosinophils (%) (Auto) 0, Basophils (%) (Auto) 0, Neutrophils # (Auto) 18.0, Lymphocytes # (Auto) 1.2, Monocytes # (Auto) 1.3, Eosinophils # (Auto) 0.0, Basophils # (Auto) 0.0, Sodium Level 130, Potassium Level 2.9, Chloride Level 95, Carbon Dioxide Level 25, Anion Gap 10, Blood Urea Nitrogen 12, Creatinine 0.75, Estimat Glomerular Filtration Rate > 60, BUN/ Creatinine Ratio 16, Glucose Level 48, Calcium Level 8.0, Corrected Calcium 9.7 , Total Bilirubin 0.2, Aspartate Amino Transf (AST/SGOT) 16, Alanine Aminotransferase (ALT/SGPT) 6, Alkaline Phosphatase 159, Total Protein 6.8, Albumin 1.9 06/26/18 06:04: Glucometer 64 06/26/18 06:51: Glucometer 66 06/26/18 07:32: Glucometer 47 06/26/18 07:48: Glucometer 139 06/26/18 08:37: Glucometer 91 Discussion & Recommendations Discharge Planning: <30 minutes discharge planning Discharge Home Medications: Active Scripts Active Meropenem-0.9% NaCl 500 mg/50 (Meropenem-0.9% Sodium Chloride) 500 Mg/50 Ml Piggyback 500 Mg IV Q6H 7 Days Vanco 1 Gram/250 ml-0.9% NaCl (Vancomycin/0.9 % Sod Chloride) 1 Gm/250 Ml Plast..bag 1 Gm IV Q12H 7 Days Amlodipine Besylate 5 Mg Tablet 5 Mg PO DAILY 7 Days Reported Aspirin EC (Aspirin) 81 Mg Tablet.dr 81 Mg PO DAILY Lisinopril 10 Mg Tablet 10 Mg PO BID LAST FILLED #60 04-14-18 Levemir Flextouch (Insulin Detemir) 100 Unit/1 Ml Insuln.pen 55 Unit SQ BID LAST FILLED 10-02-17 Nitroglycerin 0.4 Mg Tab.subl 0.4 Mg SL UD PRN Furosemide 80 Mg Tablet 80 Mg PO DAILY Atorvastatin Calcium 80 Mg Tablet 80 Mg PO HS Carvedilol 25 Mg Tablet 25 Mg PO DAILY Hydrocodon-Acetaminophn 10-325 (Hydrocodone/Acetaminophen) 1 Each Tablet 1 Tab PO Q6H PRN Instructions to patient/family Please see electronic discharge instructions given to patient. Clinical Quality Measures DVT/VTE Risk/Contraindication: Risk Factor Score Per Nursin RFS Level Per Nursing on Admit: 4+=Very High DEL MCCORMICK DO 06/29/18 0911: Discharge Summary Discharge Physical Exam Allergies: Coded Allergies: Penicillins (Verified Allergy, Unknown, 06/25/18) Sulfa (Sulfonamide Antibiotics) (Verified Allergy, Unknown, 06/25/18) General Appearance: No Apparent Distress, WD/WN, Chronically ill, Mild Distress HEENT: Normal ENT Inspection, Pharynx Normal, Moist Mucous Membranes Respiratory: Chest Non Tender, Lungs Clear, Normal Breath Sounds, No Accessory Muscle Use, No Respiratory Distress Cardiovascular: Regular Rate, Rhythm, No Gallop, No JVD, No Murmur, Normal Peripheral Pulses Extremity: Calf Tenderness, Inflammation, Pedal Edema, Swelling Skin: Normal Color, Warm/Dry Neurologic/Psychiatric: Alert, Oriented x3, No Motor/Sensory Deficits, Normal Mood/Affect Hospital Course Directly admitted the patient from Dr Blossom [facility] due to osteomyelitis and knee pain assessed to be referred pain from the left foot wound/cellulitis but severe anemia noted at 6.7 and other organ system dysfunction noted along with MRI of the left ankle and knee that revealed extensive osteomyelitis with evidence of septic arthritis of the left knee in need of higher level of care with Ortho coverage which I did not have available and ID which I don't have that specialty. Pt was stable at [facility] and sent to [facility]. Discussion & Recommendations Discharge Planning: <30 minutes discharge planning Problem Qualifiers (1) Septic arthritis of knee, left: Septic arthritis organism: due to unspecified organism Qualified Codes: M00.9 - Pyogenic arthritis, unspecified (2) Hypertension: Hypertension type: essential hypertension Qualified Codes: I10 - Essential ( primary) hypertension (3) Leukocytosis: Leukocytosis type: leukemoid reaction Qualified Codes: D72.823 - Leukemoid reaction (4) CAD (coronary artery disease): Coronary Disease-Associated Artery/Lesion type: [place] artery [place] vs. transplanted heart: [place] heart Associated angina: without angina Qualified Codes: I25.10 - Atherosclerotic heart disease of [place] coronary artery without angina pectoris (5) Anemia: Anemia type: unspecified type Qualified Codes: D64.9 - Anemia, unspecified ISACC BRADFORD STUDENT Jun 26, 2018 10:55 DEL MCCORMICK DO Jun 29, 2018 09:11
[2018-06-26] MEDS ORDERED: FLU QUADRIvalent (5+ YOA) 2018-2019 (AFLURIA) 0.5 ML IM ONE (11:15)
[2018-06-27] MEDS ORDERED: TROUGH ORDER-PHARMACY XX NR (07:00)
--- NOTE | 2018-06-29 16:39 | Physician Query Clarification ---
PQ-Further Specificity Admission/Discharge Admission Date: Jun 25, 2018 at 14:08 Discharge Date: Jun 26, 2018 at 11:05 The medical record reflects the following clinical scenario: History/Risk Factors: DM 2 / OSTEOMYELITIS Clinical Findings: DM2 / OSTEOMYELITIS Treatment: VANCOMYCIN / INSULIN Question: Can you further specify OSTEOMYELITIS per the clinical indicators above? Please document below. 1. OSTEOMYELITIS SECONDARY TO DM 2 2. OSTEOMYELITIS, UNSPECIFIED 3. Other, with explanation of the clinical findings. 4. Clinically undetermined, no explanation for the clinical findings. PHYSICIAN RESPONSE Can you specify per above: 1 In responding to this query, please exercise your independent professional judgment. The purpose of this communication is to more accurately reflect the complexity of your patients condition. The fact that a question is asked does not imply that any particular answer is desired or expected. Thank you for your timely response to this clarification. Requestors name: Mounika Benjamin THIS PHYSICIAN QUERY FORM IS A PERMANENT PART OF THE MEDICAL RECORD LAURE BENJAMIN Jun 29, 2018 16:39 DEL MCCORMICK DO Jun 29, 2018 20:35
== END 2018-06-26 11:05 | disposition short-term general hospital (02) | DRG 638 ==
LOC: 4TH 14:08
PROVIDERS: ADMIT Internal Medicine; ATTEND Internal Medicine
DX: E11.69 Type 2 diabetes mellitus with other specified complication (principal); M86.9 Osteomyelitis, unspecified; M00.9 Pyogenic arthritis, unspecified; L03.116 Cellulitis of left lower limb; E11.65 Type 2 diabetes mellitus with hyperglycemia; E11.42 Type 2 diabetes mellitus with diabetic polyneuropathy; E11.51 Type 2 diabetes mellitus with diabetic peripheral angiopathy without gangrene; D50.0 Iron deficiency anemia secondary to blood loss (chronic); F17.210 Nicotine dependence, cigarettes, uncomplicated; I10 Essential (primary) hypertension; I25.10 Atherosclerotic heart disease of native coronary artery without angina pectoris; E78.5 Hyperlipidemia, unspecified; Z79.82 Long term (current) use of aspirin; Z79.4 Long term (current) use of insulin; Z89.432 Acquired absence of left foot; Z89.431 Acquired absence of right foot
CPT/HCPCS: 36415; 71045; 73600; 73620; 73720; 73721; 80053; 81000; 82962; 83540; 83605; 85007; 85025; 85027; 85652; 87040; 93306; 93970; 94760